=== PATIENT | male | born 1975 | race Caucasian/White ===

== ENCOUNTER 2021-08-22 19:39 | Emergency (ER) | payer BC ==
[2021-08-22] MEDS ORDERED: Lidocaine 1% with EPINEPHrine 1:100,000 20 ML MDV INJECT ONE (20:05)
[2021-08-22] MEDS ORDERED: Bupivacaine 0.5% 10 ML SDV INJECT ONE (20:05)
--- NOTE | 2021-08-22 20:11 | EDM.PDOC ---
ED HPI GENERAL MEDICAL PROBLEM - General Chief Complaint: Laceration Stated Complaint: RT ANKLE LAC Time Seen by Provider: 08/22/21 19:53 Source of Information: Reports: Patient, Family ([id number]) History Limitations: Reports: No Limitations - History of Present Illness INITIAL COMMENTS - FREE TEXT/NARRATIVE: Mr. Sam is a very pleasant 46-year-old gentleman who now presents the ED after sustaining a laceration to his dorsal medial right foot by an ax while chopping wood around 19:30 this evening, at home. He had consumed about 10 beers prior to the accident. He is otherwise uninjured. No treatment prior to coming to the ED. The patient states that his last tetanus vaccination was about 4 years ago. At triage, the patient's initial BP was found to be slightly elevated at 118/100, otherwise, he was hemodynamically stable, afebrile, saturating 100% on room air. He appears to be inebriated, in no acute distress. Prior to tonight's injury, the patient denies having a recent fever, chills, sore throat, ear pain, nasal or sinus congestion, cough, dyspnea, chest pain, palpitations, nausea, vomiting, constipation, diarrhea, abdominal pain, urinary symptoms, recent weight gain or weight loss, recent bloody bowel movements or black bowel movements, recent joint aches, headaches, or rashes. The patient does not have a PCP. He has received 2 Moderna COVID vaccinations, although no influenza vaccination this season. Right Feet Pain Score (Numeric/FACES): 3 - Related Data Allergies Allergy/AdvReac Type Severity Reaction Status Date / Time No Known Allergies Allergy Verified 08/22/21 19:54 Home Meds: Home Meds . [No Known Home Meds] 08/22/21 [History] Past Medical History Neurological History: Reports: Other (See Below) (Essential tremor) Endocrine/Metabolic History: Reports: Obesity/BMI 30+ - Past Surgical History HEENT Surgical History: Reports: Oral Surgery (dental extractions) GI Surgical History: Reports: Hernia, Inguinal (left) Musculoskeletal Surgical History: Reports: ORIF (right wrist, right ankle) Social & Family History - Tobacco Use Tobacco Use Status *Q: Current Every Day Tobacco User Tobacco Use Within Last Twelve Months: Smokeless Tobacco (Chews 1/2 can/day) Years of Tobacco use: 32 Packs/Tins Daily: 0.5 Packs/Tins Daily Comment: Down fro 1.5 ppd Tobacco Use Comment: Started smoking 1988 - Caffeine Use Caffeine Use: Reports: Coffee, Energy Drinks, Soda - Alcohol Use Alcohol Use History: Yes Alcohol Use Frequency: Socially (occasionally to excess) - Recreational Drug Use Recreational Drug Use: No - Living Situation & Occupation Living situation: Reports: , with Spouse, with Family (3 kids) Occupation: Employed (Self-employed) ED ROS GENERAL - Review of Systems Review Of Systems: Comprehensive ROS is negative, except as noted in HPI. ED EXAM, SKIN/RASH Exam: See Below Exam Limited By: No Limitations General Appearance: Alert, WD/WN, No Apparent Distress Extremities: Other (There is an approximately 4 cm jagged laceration to the dorsal medial aspect of the patient's right foot. No tendon injury. There is bleeding, but neurovascular status of the right foot is intact.) ED SKIN PROCEDURES - Laceration/Wound Repair Right Foot Appearance: Subcutaneous, Irregular, Clean Distal NVT: Neuro & Vascular Intact, No Tendon Injury Anesthetic Type: Local Local Anesthesia - Lidocaine (Xylocaine): 1% Plain (50:50 mixture) Local Anesthesia - Bupivicaine (Marcaine): 0.5% Plain (50:50 mixture) Local Anesthetic Volume: 1cc Skin Prep: Providone-Iodine (Betadine) Exploration/Debridement/Repair: Wound Explored, In a Bloodless Field, Explored to Base, No Foreign Material Found Closed with: Sutures Lac/Wound length In cm: 4.0 Suture Size: 3-0 # of Sutures: 12 Suture Type: Nylon (Ethilon), Running, Simple Drain Placement: No Sterile Dressing Applied: Nurse Tetanus Status Addressed: Yes Complications: No Course - Vital Signs Last Recorded V/S: Last Vital Signs Temp 36.1 C 08/22/21 19:52 Pulse 96 08/22/21 19:52 Resp 18 08/22/21 19:52 BP 118/100 H 08/22/21 19:52 Pulse Ox 100 08/22/21 19:52 - Orders/Labs/Meds Meds: Medications Discontinued Medications Generic Name Dose Route Start Last Admin Trade Name Freq PRN Reason Stop Dose Admin Bupivacaine HCl 10 ml 08/22/21 20:05 08/22/21 20:55 Bupivacaine 0.5% 10 Ml Sdv INJECT 08/22/21 20:06 10 ml ONETIME ONE Administration Lidocaine/Epinephrine 20 ml 08/22/21 20:05 08/22/21 20:55 Lidocaine 1% With Epinephrine 1:100,000 20 Ml Mdv INJECT 08/22/21 20:06 20 ml ONETIME ONE Administration - Re-Assessments/Exams Free Text/Narrative Re-Assessment/Exam: 08/22/21 21:34 After the wound was irrigated, a sterile field was established and the wound infiltrated with a 50:50 mixture of bupivacaine 0.5% without epinephrine and lidocaine 1% with epinephrine, to good anesthetic effect. The wound was then closed with 12 simple running sutures using 3-0 Ethilon, to good cosmetic effect. The patient tolerated the procedure well. The sutures should be ready for removal by 09/01/2021. Departure - Departure Time of Disposition: 21:36 Disposition: Home, Self-Care 01 Condition: Good Clinical Impression: Laceration of right foot - Discharge Information *PRESCRIPTION DRUG MONITORING PROGRAM REVIEWED*: Not Applicable *COPY OF PRESCRIPTION DRUG MONITORING REPORT IN PATIENT ADOLFO: Not Applicable Referrals: PCP,None [Primary Care Provider] - Forms: ED Department Discharge Additional Instructions: You were seen in the emergency room after cutting your right foot with an ax. Your wound was closed with 12 sutures in the ER. Keep the wound clean with ordinary soap and water when you bathe. Pat dry, then apply a sterile bandage, daily. Do not apply antibiotic ointment. While you may keep the wound clean, we do not want you to soak the wound, such as in the bathtub or swimming. The sutures should be ready for removal by 09/01/2021. They can be removed at the walk-in clinic or in the ER. It is highly unlikely that the wound will got infected, but if there is a concern of infection, with significant redness, swelling, drainage from the wound, or inordinate pain, please do not hesitate to return to the ER for reevaluation. Sepsis Event Note (ED) - Focused Exam Vital Signs: Vital Signs Temp Pulse Resp BP Pulse Ox 08/22/21 19:52 36.1 C 96 18 118/100 H 100
== END 2021-08-22 22:00 | disposition home or self-care (01) ==
LOC: JD.ED 19:39
DX: S91.311A Laceration without foreign body, right foot, initial encounter (principal); E66.9 Obesity, unspecified; Z72.0 Tobacco use; Z68.37 Body mass index [BMI] 37.0-37.9, adult; W26.8XXA Contact with other sharp object(s), not elsewhere classified, initial encounter
CPT/HCPCS: 12002; 99282; J3490

== ENCOUNTER 2021-12-24 11:28 | Inpatient (IN) | payer BC, OTHER ==
[2021-12-24] MEDS ORDERED: Ondansetron 4 MG/2 ML SDV IVPUSH ONE (13:34)
[2021-12-24] MEDS ORDERED: Lactated Ringers 1,000 ML IV ONE (13:34)
[2021-12-24] MEDS ORDERED: HYDROmorphone 0.5 MG/0.5 ML Syringe IVPUSH ONE (13:35)
[2021-12-24] MEDS ORDERED: Lactated Ringers 1,000 ML IV SCH (13:45)
[2021-12-24] MEDS ORDERED: Temazepam 15 MG Cap PO PRN (16:14)
[2021-12-24] MEDS ORDERED: Sodium Chloride 0.9% 10 ML Syringe FLUSH ONE (16:48)
[2021-12-24] MEDS ORDERED: Iopamidol 612 MG/ML 50 ML SDV IVPUSH ONE (16:48)
[2021-12-24] MEDS ORDERED: Iopamidol 612 MG/ML 100 ML Bottle IVPUSH ONE (16:49)
[2021-12-24] MEDS ORDERED: Sodium Chloride 0.9% 100 ML IV SCH (17:00)
[2021-12-24] MEDS: Ondansetron 4 MG/2 ML SDV IVPUSH PRN (18:28)
[2021-12-24] MEDS: Morphine 2 MG/ML SYRINGE IVPUSH PRN (18:35)
[2021-12-24] MEDS: Sodium Chloride 0.9% 1,000 ML IV SCH (18:38)
[2021-12-25] MEDS: Ondansetron 4 MG/2 ML SDV IVPUSH PRN ×2 (00:25→08:37)
[2021-12-25] MEDS: Morphine 2 MG/ML SYRINGE IVPUSH PRN (00:29)
[2021-12-25] MEDS: Sodium Chloride 0.9% 1,000 ML IV SCH ×2 (04:05→15:23)
[2021-12-25 07:51] LABS: HEMOGLOBIN A1C 5.8 %
[2021-12-25] MEDS ORDERED: Enoxaparin 40 MG/0.4 ML Syringe SUBCUT SCH (09:00)
== END 2021-12-25 20:02 | disposition home or self-care (01) | DRG 389 ==
LOC: JD.ED 11:28 → JD.MS 16:15
PROVIDERS: ADMIT Internal Medicine; ATTEND Internal Medicine
DX: K56.609 Unspecified intestinal obstruction, unspecified as to partial versus complete obstruction (principal); F17.200 Nicotine dependence, unspecified, uncomplicated; K56.51 Intestinal adhesions [bands], with partial obstruction; Z68.41 Body mass index [BMI] 40.0-44.9, adult; D72.825 Bandemia; R73.03 Prediabetes; E66.9 Obesity, unspecified; Z79.899 Other long term (current) drug therapy; F17.210 Nicotine dependence, cigarettes, uncomplicated; Z86.16 Personal history of COVID-19; Z86.19 Personal history of other infectious and parasitic diseases
CPT/HCPCS: 36415; 71045; 74019; 80053; 84484; 85025; 93005; J1170; J2405; J7120 ×2; 74177; 74177-26; 81001; 83036; 96374; 96375; 99285-25; J1650; J2270; J3490; J7030; Q9967

== ENCOUNTER 2023-02-26 07:02 | Day surgery (SDC) | payer OTHER ==
[~2023-02-26 07:02] MED LIST: Lactated Ringers 1,000 ML IV SCH; Sodium Chloride 0.9% 10 ML Syringe FLUSH PRN; Sodium Chloride 0.9% 10 ML Syringe FLUSH SCH
[2023-02-26] MEDS ORDERED: Propofol 200 MG/20 ML SDV ONE (07:57)
[2023-02-26] MEDS ORDERED: fentaNYL 100 MCG/2 ML SDV ONE (07:57)
== END 2023-02-26 09:25 | disposition home or self-care (01) ==
LOC: JD.SDS 07:02
PROVIDERS: ATTEND Surgery
DX: Z12.11 Encounter for screening for malignant neoplasm of colon (principal); K52.9 Noninfective gastroenteritis and colitis, unspecified; D12.2 Benign neoplasm of ascending colon; D12.5 Benign neoplasm of sigmoid colon; K57.30 Diverticulosis of large intestine without perforation or abscess without bleeding; E78.00 Pure hypercholesterolemia, unspecified; G47.33 Obstructive sleep apnea (adult) (pediatric); M54.9 Dorsalgia, unspecified; G89.29 Other chronic pain; E66.9 Obesity, unspecified; E55.9 Vitamin D deficiency, unspecified; Z98.890 Other specified postprocedural states; Z80.0 Family history of malignant neoplasm of digestive organs; Z87.891 Personal history of nicotine dependence; Z68.32 Body mass index [BMI] 32.0-32.9, adult
CPT/HCPCS: 45380; 45385; J2704; J3010; J7120